=== PATIENT | female | born 1955 | race Caucasian/White ===

== ENCOUNTER 2023-12-27 15:17 | Outpatient (CLI) | payer BC ==
--- NOTE | 2023-12-27 21:38 | XRAY Report ---
PROCEDURE: Toe(s) 2+V RT INDICATIONS: CONTUSION OF RIGHT GREAT TOE WITH DAMAGE TO NAIL TECHNIQUE: 3 views of the toe(s) were obtained. COMPARISON: None FINDINGS: Bones: Subacute fracture of the head of the first proximal phalanx noted. No displacement Soft tissues: No suspicious soft tissue densities. IMPRESSION: Subacute first proximal phalangeal fracture Reviewed by: Cruz Morel MD on 12/27/2023 8:37 PM AKDT Approved by: Cruz Morel MD on 12/27/2023 8:37 PM AKDT Station ID: [id number]
== END 2023-12-27 15:18 | disposition home or self-care (01) ==
LOC: DI 15:17
PROVIDERS: ATTEND Emergency Medicine
DX: S90.211A Contusion of right great toe with damage to nail, initial encounter (principal); S92.411A Displaced fracture of proximal phalanx of right great toe, initial encounter for closed fracture